=== PATIENT | female | born 1995 | race American Indian/Alaskan Native ===

== ENCOUNTER 2017-03-13 19:43 | Emergency (ER) | payer SELFPAY ==
[2017-03-13] MEDS ORDERED: NORCO 5/325 PO ONE (22:56)
[2017-03-13] MEDS ORDERED: NORCO 5/325 ONE (22:58)
[2017-03-14] MEDS ORDERED: TORADOL IV ONE (04:55)
[2017-03-14] MEDS ORDERED: MORPHINE IV ONE (04:55)
[2017-03-14] MEDS ORDERED: ZOFRAN IV ONE (04:55)
[2017-03-14 05:12] VITALS: BP 117/69
[2017-03-14] MEDS ORDERED: XYLOCAINE 2% INFILTRATI ONE (09:05)
--- NOTE | 2017-03-14 09:13 | Emergency Department Report ---
ED Female HPI - General Chief complaint: Urogenital-Female Stated complaint: CYST NEEDS TO DRAIN Time Seen by Provider: 03/14/17 08:52 Source: patient Mode of arrival: Ambulatory Limitations: No Limitations - History of Present Illness Initial comments: Patient presents here with complaints of swelling in her left labia region 4 days. Patient denies vaginal discharge, no fever, no nausea or vomiting. Swelling of her left labia makes it difficult for her to walk. -: Gradual, days(s) (4 , progressively getting worse) Location: labia (left) Severity scale (0 -10): 10 Quality: sharp, stabbing Consistency: constant Improves with: none Worsens with: movement Associated Symptoms: other (pain and swelling left labia). denies: vaginal discharge, vaginal bleeding, abdominal pain, nausea/vomiting, fever/chills, headaches, loss of appetite, dysuria, hematuria, rash, seizure, shortness of breath, syncope, weakness - Related Data Previous Rx's Medication Instructions Recorded Last Taken Type HYDROcodone/APAP 5-325 [[place] 1 each PO Q6HR PRN #20 tablet 03/14/17 Unknown Rx 5/325] Ibuprofen [Motrin 400 MG tab] 400 mg PO Q6HR PRN #30 tablet 03/14/17 Unknown Rx Sulfamethoxazole/Trimethoprim 1 each PO BID #14 tablet 03/14/17 Unknown Rx [Bactrim DS TAB] Allergies Allergy/AdvReac Type Severity Reaction Status Date / Time No Known Allergies Allergy Verified 03/13/17 23:01 ED Review of Systems ROS: Stated complaint: CYST NEEDS TO DRAIN Other details as noted in HPI Comment: All other systems reviewed and negative Genitourinary: other (pain and swelling of her left labia). denies: urgency, frequency, hematuria, abnormal menses ED Past Medical Hx - Past Medical History Previous Medical History?: No Additional medical history: denies - Surgical History Past Surgical History?: No Additional Surgical History: denies - Social History Smoking Status: Current Every Day Smoker Substance Use Type: Alcohol - Medications Home Medications: Home Medications Medication Instructions Recorded Confirmed Last Taken Type HYDROcodone/APAP 5-325 [[place] 1 each PO Q6HR PRN #20 tablet 03/14/17 Unknown Rx 5/325] Ibuprofen [Motrin 400 MG tab] 400 mg PO Q6HR PRN #30 tablet 03/14/17 Unknown Rx Sulfamethoxazole/Trimethoprim 1 each PO BID #14 tablet 03/14/17 Unknown Rx [Bactrim DS TAB] ED Physical Exam - General Limitations: No Limitations General appearance: alert, in distress (mild to moderate distress) - Head Head exam: Present: atraumatic, normocephalic, normal inspection - Eye Eye exam: Present: normal appearance, PERRL, EOMI. Absent: scleral icterus, conjunctival injection Pupils: Present: normal accommodation - ENT ENT exam: Present: normal exam, normal orophraynx, mucous membranes moist - Neck Neck exam: Present: normal inspection, full ROM. Absent: tenderness, lymphadenopathy - Respiratory Respiratory exam: Present: normal lung sounds bilaterally. Absent: respiratory distress, wheezes, rales, rhonchi, chest wall tenderness, accessory muscle use, decreased breath sounds - Cardiovascular Cardiovascular Exam: Present: regular rate, normal rhythm, normal heart sounds. Absent: bradycardia, systolic murmur - GI/Abdominal GI/Abdominal exam: Present: soft, normal bowel sounds. Absent: distended, tenderness, guarding, diminished bowel sounds, hyperactive bowel sounds - Rectal Rectal exam: Present: deferred - External exam: Present: swelling (left labia) Speculum exam: Absent: vaginal discharge, vaginal bleeding, laceration - Extremities Exam Extremities exam: Present: normal inspection, normal capillary refill. Absent: full ROM - Back Exam Back exam: Present: normal inspection, full ROM. Absent: CVA tenderness (L), muscle spasm - Neurological Exam Neurological exam: Present: alert, oriented X3, CN II-XII intact ED Course Vital Signs 03/13/17 03/13/17 03/13/17 20:31 20:49 22:56 Temperature 99.3 F 99.3 F Pulse Rate 100 H 99 H Respiratory 18 18 18 Rate Blood Pressure 110/77 110/77 Blood Pressure [Left] O2 Sat by Pulse 100 100 Oximetry 03/14/17 03/14/17 03/14/17 04:52 05:13 05:15 Temperature Pulse Rate 77 Respiratory 18 18 18 Rate Blood Pressure Blood Pressure 117/69 [Left] O2 Sat by Pulse 100 100 Oximetry - I & D Left Vagina Site: left labia, Bartholin's abscess Blade Size: 15 Progress: Patient's left labia was cleanes with chlorhexidine brush. 5 cc of Lidocaine infiltrated around her left bartholin's abscess. Incision made, drainage observed. No packing done Procedure was well tolerated Critical Care Time: No Critical care attestation.: If time is entered above; I have spent that time in minutes in the direct care of this critically ill patient, excluding procedure time. ED Disposition Clinical Impression: Bartholin's gland abscess Disposition: TO HOME OR SELFCARE Is pt being admited?: No Does the pt Need Aspirin: No Condition: Stable Instructions: Incision and Drainage (ED) Additional Instructions: Do sitz baths, twice daily. Follow up with your Personnel Analyst in 2-3 days. Return back to ED if your problem gets worse, for possible marsupialization Prescriptions: HYDROcodone/APAP 5-325 [[place] 5/325] 1 each PO Q6HR PRN #20 tablet PRN Reason: Pain Ibuprofen [Motrin 400 MG tab] 400 mg PO Q6HR PRN #30 tablet PRN Reason: Pain Sulfamethoxazole/Trimethoprim [Bactrim DS TAB] 1 each PO BID #14 tablet Referrals: PRIMARY CARE, [Primary Care Provider] - 3-5 Days Time of Disposition: 10:06
[2017-03-14] MEDS ORDERED: NORCO 5/325 PO ONE (09:51)
== END 2017-03-14 10:37 | disposition home or self-care (01) ==
LOC: ED 19:43
DX: N75.1 Abscess of Bartholin's gland (principal); F17.210 Nicotine dependence, cigarettes, uncomplicated
CPT/HCPCS: 56420; 96374; 96375; 99283; J1885; J2270; J2405

== ENCOUNTER 2018-02-21 08:46 | Emergency (ER) | payer SELFPAY ==
[2018-02-21 08:54] VITALS: BP 140/89
[2018-02-21 09:31] LABS: Basophils # (Auto) 0.1 K/mm3 (0.0-0.1); Basophils % (Auto) 1.1 % (0.0-1.8); Eosinophils # (Auto) 0.1 K/mm3 (0.0-0.4); Eosinophils % (Auto) 1.8 % (0.0-4.3); Hematocrit 38.4 % (30.3-42.9); Hemoglobin 13.2 gm/dl (10.1-14.3); Lymphocytes # (Auto) 2.2 K/mm3 (1.2-5.4); Lymphocytes % (Auto) 31.1 % (13.4-35.0); Mean Corpuscular HGB Conc 34 % (30-34); Mean Corpuscular Hemoglobin 32 pg (28-32); Mean Corpuscular Volume 93 fl (79-97); Platelet Count 242 K/mm3 (140-440); Red Blood Count 4.12 M/mm3 (3.65-5.03); Red Cell Distribution Width 13.8 % (13.2-15.2)
[2018-02-21 09:47] LABS: Alanine Aminotransferase 14 units/L (7-56); BUN/Creatinine Ratio 6; Blood Urea Nitrogen 5 mg/dL (7-17); Calcium 8.7 mg/dL (8.4-10.2); Hemolysis Index 5; Lipase 18 units/L (13-60)
[2018-02-21 10:17] LABS: Bilirubin,Urine NEG (Negative); Blood,Urine NEG (Negative); Color,Urine Yellow (Yellow); Mucus,Urine 1+ /HPF; Protein,Urine <15 mg/dL mg/dL (Negative); Urobilinogen,Urine < 2.0 mg/dL (<2.0)
[2018-02-21] MEDS: NACL 0.9% 1000 ML 1,000 ML IV ONE ×2 (12:10→12:45)
[2018-02-21] MEDS ORDERED: ZOFRAN IV ONE (12:28)
[2018-02-21] MEDS ORDERED: MORPHINE IV ONE (12:28)
--- NOTE | 2018-02-21 12:33 | Emergency Department Report ---
Blank Doc - Documentation Documentation: 23-year-old female presents to ED with complaints of right upper quadrant pain since yesterday. Patient reports onset of nausea vomiting diarrhea 4 days ago. Was seen in ED 2 days ago for those symptoms. Patient states vomiting and diarrhea have improved, however, reports onset of left right upper quadrant pain yesterday. Patient states pain is pleuritic, unable to take a deep breath. Patient denies leg pain or swelling. She denies fever or chills. On exam patient has normal vitals. Patient is splinting with respirations. Lungs are clear. No edema or calf tenderness and lower extremities. Patient has slight tenderness to right upper quadrant. Will obtain chest x-ray, d-dimer to rule out PE, and right upper quadrant ultrasound to assess gallbladder.
--- NOTE | 2018-02-21 13:13 | XRay Report ---
FINAL REPORT EXAM: XR CHEST ROUTINE 2V HISTORY: right lower chest pain TECHNIQUE: 2 view examination of the chest PRIORS: None FINDINGS: There is no visible pulmonary consolidation, pleural effusion, or pneumothorax. Cardiac silhouette size is normal without vascular congestion. No visible acute displaced fracture in the regional skeleton. No evidence of right pleural thickening. IMPRESSION: No evidence of acute cardiopulmonary disease
--- NOTE | 2018-02-21 13:25 | Ultrasound Report ---
FINAL REPORT EXAM: US ABDOMEN LIMITED HISTORY: RUQ pain TECHNIQUE: Ultrasound examination of the abdomen PRIORS: None. FINDINGS: The visible portion of the following structures reveal: Ascites: None Liver: No focal lesion.No enlargement. Gallbladder: No pericholecystic fluid.No evidence of wall thickening.No calculus. Common bile duct: Normal caliber. Pancreas: No focal abnormality in the visible portion. Right kidney: No hydronephrosis.No solid mass.No definite calculus. Abdominal aorta: Normal caliber. IVC: Normal caliber. IMPRESSION: No evidence of acute pathology
[2018-02-21 13:44] LABS: INR 1.07 (0.87-1.13); Partial Thromboplastin Time 28.6 Sec. (24.2-36.6)
--- NOTE | 2018-02-21 14:14 | Emergency Department Report ---
ED General Adult HPI - General Chief complaint: Abdominal Pain Stated complaint: ABD PAIN/SOB Time Seen by Provider: 02/21/18 11:49 Source: patient Mode of arrival: Ambulatory Limitations: No Limitations - History of Present Illness Initial comments: 23-year-old female presents to ED with complaints of right upper quadrant pain since yesterday. Patient reports onset of nausea vomiting diarrhea 4 days ago. Was seen in ED 2 days ago for those symptoms. Patient states vomiting and diarrhea have improved, however, reports onset of left right upper quadrant pain yesterday. Patient states pain is pleuritic, unable to take a deep breath. Patient denies leg pain or swelling. She denies fever or chills. Denies vomiting blood or blood in stool. She denies any fever or chills. Denies any urinary burning frequency or urgency. Denies any back pain. Patient is on control that she takes orally. She says she is having some shortness of breath. Last menstrual period was 01/25/2018 and denies any vaginal discharge or bleeding. MD Complaint: abdominal pain right upper quadrant and diarrhea Onset/Timin -: days(s) Location: abdomen Radiation: non-radiation Severity scale (0 -10): 3 Quality: aching, sharp Consistency: intermittent Improves with: none Worsens with: none Associated Symptoms: other (diarrhea last time was this morning. Reports some shortness of breath.). denies: confusion, chest pain, cough, diaphoresis, fever /chills, headaches, loss of appetite, malaise, nausea/vomiting, rash, seizure, shortness of breath, syncope, weakness Treatments Prior to Arrival: other (Zofran) - Related Data Previous Rx's Medication Instructions Recorded Last Taken Type HYDROcodone/APAP 5-325 [[place] 1 each PO Q6HR PRN #20 tablet 03/14/17 Unknown Rx 5/325] Ibuprofen [Motrin 400 MG tab] 400 mg PO Q6HR PRN #30 tablet 03/14/17 Unknown Rx Sulfamethoxazole/Trimethoprim 1 each PO BID #14 tablet 03/14/17 Unknown Rx [Bactrim DS TAB] Ondansetron [Zofran Odt] 4 mg PO Q8HR #9 tab.rapdis 02/19/18 Unknown Rx Dicyclomine [Bentyl] 20 mg PO Q8H 3 Days #9 bottle 02/21/18 Unknown Rx cephALEXin [Keflex] 500 mg PO Q8HR 7 Days #21 cap 02/21/18 Unknown Rx traMADol [Ultram 50 MG tab] 50 mg PO Q6HR PRN #12 tablet 02/21/18 Unknown Rx Allergies Allergy/AdvReac Type Severity Reaction Status Date / Time ibuprofen Allergy Hives Verified 02/19/18 04:30 ED Review of Systems ROS: Stated complaint: ABD PAIN/SOB Other details as noted in HPI Constitutional: denies: chills, fever Eyes: denies: eye pain, eye discharge, vision change ENT: denies: ear pain, throat pain, congestion Respiratory: shortness of breath (with pain to abdomen). denies: cough, SOB with exertion, SOB at rest, stridor, wheezing Cardiovascular: denies: chest pain, palpitations, edema, syncope Gastrointestinal: abdominal pain, diarrhea. denies: nausea, vomiting, constipation, hematemesis, melena, hematochezia Genitourinary: denies: urgency, dysuria, discharge Musculoskeletal: denies: back pain, joint swelling, arthralgia, myalgia Skin: denies: rash, lesions Neurological: denies: headache, weakness ED Past Medical Hx - Past Medical History Previous Medical History?: No Additional medical history: denies - Surgical History Past Surgical History?: No Additional Surgical History: denies - Family History Family history: hypertension - Social History Smoking Status: Current Every Day Smoker Substance Use Type: None - Medications Home Medications: Home Medications Medication Instructions Recorded Confirmed Last Taken Type HYDROcodone/APAP 5-325 [[place] 1 each PO Q6HR PRN #20 tablet 03/14/17 Unknown Rx 5/325] Ibuprofen [Motrin 400 MG tab] 400 mg PO Q6HR PRN #30 tablet 03/14/17 Unknown Rx Sulfamethoxazole/Trimethoprim 1 each PO BID #14 tablet 03/14/17 Unknown Rx [Bactrim DS TAB] Ondansetron [Zofran Odt] 4 mg PO Q8HR #9 tab.rapdis 02/19/18 Unknown Rx Dicyclomine [Bentyl] 20 mg PO Q8H 3 Days #9 bottle 02/21/18 Unknown Rx cephALEXin [Keflex] 500 mg PO Q8HR 7 Days #21 cap 02/21/18 Unknown Rx traMADol [Ultram 50 MG tab] 50 mg PO Q6HR PRN #12 tablet 02/21/18 Unknown Rx ED Physical Exam - General Limitations: No Limitations General appearance: alert, in no apparent distress - Head Head exam: Present: atraumatic, normocephalic, normal inspection - Eye Eye exam: Present: normal appearance, PERRL, EOMI Pupils: Present: normal accommodation - ENT ENT exam: Present: normal exam, normal orophraynx, mucous membranes moist, TM's normal bilaterally, normal external ear exam - Neck Neck exam: Present: normal inspection, full ROM. Absent: tenderness, lymphadenopathy - Respiratory Respiratory exam: Present: normal lung sounds bilaterally. Absent: respiratory distress, wheezes, rales, rhonchi, stridor, chest wall tenderness, accessory muscle use, decreased breath sounds, prolonged expiratory - Cardiovascular Cardiovascular Exam: Present: regular rate, normal rhythm, normal heart sounds. Absent: systolic murmur, diastolic murmur - GI/Abdominal GI/Abdominal exam: Present: soft, tenderness (minimal right upper quadrant), normal bowel sounds. Absent: distended, guarding, rebound, rigid, organomegaly , mass, bruit, pulsatile mass - Extremities Exam Extremities exam: Present: normal inspection, full ROM, normal capillary refill , other (No cce. + 2 pulses in all extremities, no neurovascular compromise). Absent: tenderness, pedal edema, joint swelling, calf tenderness - Back Exam Back exam: Present: normal inspection, full ROM, other (Ambulates without any difficulties). Absent: tenderness, CVA tenderness (R), CVA tenderness (L), muscle spasm, paraspinal tenderness, vertebral tenderness, rash noted - Neurological Exam Neurological exam: Present: alert, oriented X3, normal gait - Psychiatric Psychiatric exam: Present: normal affect, normal mood - Skin Skin exam: Present: warm, dry, intact, normal color. Absent: rash ED Course Vital Signs 02/21/18 02/21/18 02/21/18 08:51 12:45 12:58 Temperature 98.7 F Pulse Rate 96 H Respiratory 24 20 18 Rate Blood Pressure 140/89 O2 Sat by Pulse 98 Oximetry 02/21/18 02/21/18 16:01 16:48 Temperature Pulse Rate Respiratory 18 18 Rate Blood Pressure O2 Sat by Pulse Oximetry - Reevaluation(s) Reevaluation #1: 02/21/18 13:01 Patient received 1 L normal saline, Zofran 4 mg IV and morphine 4 mg IV for nausea and abdominal pain and she says she feels better. Reevaluation #2: 02/21/18 14:30 D-dimer elevated on the lower side and patient taking control pills therefore she was ordered CTA chest. She said her pain and nausea is better and better. Potassium is slightly low so she was given potassium 40 mEq by mouth 1 dose. Abdominal exam is nontender to palpate in all quadrants with normal bowel sounds. Reevaluation #3: 02/21/18 17:04 CTA chest no PE or any acute cardiopulmonary processes. She received 1 Percocet 325/5 mg for recurrent pain or relief. I discussed the patient all her results and she voiced understanding. Patient to be discharged home she is able to tolerate by mouth fluids. ED Medical Decision Making - Lab Data Result diagrams: 02/21/18 09:12 02/21/18 09:12 Lab Results 02/21/18 02/21/18 02/21/18 Range/Units 09:12 09:12 09:12 WBC 6.9 (4.5-11.0) K/mm3 RBC 4.12 (3.65-5.03) M/mm3 Hgb 13.2 (10.1-14.3) gm/dl Hct 38.4 (30.3-42.9) % MCV 93 (79-97) fl MCH 32 (28-32) pg MCHC 34 (30-34) % RDW 13.8 (13.2-15.2) % Plt Count 242 (140-440) K/mm3 Lymph % (Auto) 31.1 (13.4-35.0) % Routt % (Auto) 14.0 H (0.0-7.3) % Eos % (Auto) 1.8 (0.0-4.3) % Baso % (Auto) 1.1 (0.0-1.8) % Lymph # 2.2 (1.2-5.4) K/mm3 Routt # 1.0 H (0.0-0.8) K/mm3 Eos # 0.1 (0.0-0.4) K/mm3 Baso # 0.1 (0.0-0.1) K/mm3 Seg Neutrophils % 52.0 (40.0-70.0) % Seg Neutrophils # 3.6 (1.8-7.7) K/mm3 PT (12.2-14.9) Sec. INR (0.87-1.13) APTT (24.2-36.6) Sec. D-Dimer (0-234) ng/mlDDU Sodium 137 (137-145) mmol/L Potassium 3.4 L (3.6-5.0) mmol/L Chloride 101.2 (98-107) mmol/L Carbon Dioxide 21 L (22-30) mmol/L Anion Gap 18 mmol/L BUN 5 L (7-17) mg/dL Creatinine 0.8 (0.7-1.2) mg/dL Estimated GFR > 60 ml/min BUN/Creatinine Ratio 6 % Glucose 88 (65-100) mg/dL Calcium 8.7 (8.4-10.2) mg/dL Total Bilirubin 0.30 (0.1-1.2) mg/dL AST 20 (5-40) units/L ALT 14 (7-56) units/L Alkaline Phosphatase 59 (35-129) units/L Total Protein 7.0 (6.3-8.2) g/dL Albumin 4.0 (3.9-5) g/dL Albumin/Globulin Ratio 1.3 % Lipase 18 (13-60) units/L HCG, Qual Negative (Negative) Urine Color (Yellow) Urine Turbidity (Clear) Urine pH (5.0-7.0) Ur Specific [place] (1.003-1.030) Urine Protein (Negative) mg/dL Urine Glucose (UA) (Negative) mg/dL Urine Ketones (Negative) mg/dL Urine Blood (Negative) Urine Nitrite (Negative) Urine Bilirubin (Negative) Urine Urobilinogen (<2.0) mg/dL Ur Leukocyte Esterase (Negative) Urine WBC (Auto) (0.0-6.0) /HPF Urine RBC (Auto) (0.0-6.0) /HPF U Epithel Cells (Auto) (0-13.0) /HPF Urine Mucus /HPF Monoscreen (Negative) 02/21/18 02/21/18 02/21/18 Range/Units 09:44 13:19 14:30 WBC (4.5-11.0) K/mm3 RBC (3.65-5.03) M/mm3 Hgb (10.1-14.3) gm/dl Hct (30.3-42.9) % MCV (79-97) fl MCH (28-32) pg MCHC (30-34) % RDW (13.2-15.2) % Plt Count (140-440) K/mm3 Lymph % (Auto) (13.4-35.0) % Routt % (Auto) (0.0-7.3) % Eos % (Auto) (0.0-4.3) % Baso % (Auto) (0.0-1.8) % Lymph # (1.2-5.4) K/mm3 Routt # (0.0-0.8) K/mm3 Eos # (0.0-0.4) K/mm3 Baso # (0.0-0.1) K/mm3 Seg Neutrophils % (40.0-70.0) % Seg Neutrophils # (1.8-7.7) K/mm3 PT 14.5 (12.2-14.9) Sec. INR 1.07 (0.87-1.13) APTT 28.6 (24.2-36.6) Sec. D-Dimer 309.37 H (0-234) ng/mlDDU Sodium (137-145) mmol/L Potassium (3.6-5.0) mmol/L Chloride (98-107) mmol/L Carbon Dioxide (22-30) mmol/L Anion Gap mmol/L BUN (7-17) mg/dL Creatinine (0.7-1.2) mg/dL Estimated GFR ml/min BUN/Creatinine Ratio % Glucose (65-100) mg/dL Calcium (8.4-10.2) mg/dL Total Bilirubin (0.1-1.2) mg/dL AST (5-40) units/L ALT (7-56) units/L Alkaline Phosphatase (35-129) units/L Total Protein (6.3-8.2) g/dL Albumin (3.9-5) g/dL Albumin/Globulin Ratio % Lipase (13-60) units/L HCG, Qual (Negative) Urine Color Yellow (Yellow) Urine Turbidity Slightly-cloudy (Clear) Urine pH 5.0 (5.0-7.0) Ur Specific [place] 1.021 (1.003-1.030) Urine Protein <15 mg/dl (Negative) mg/dL Urine Glucose (UA) Neg (Negative) mg/dL Urine Ketones 20 (Negative) mg/dL Urine Blood Neg (Negative) Urine Nitrite Neg (Negative) Urine Bilirubin Neg (Negative) Urine Urobilinogen < 2.0 (<2.0) mg/dL Ur Leukocyte Esterase Mod (Negative) Urine WBC (Auto) 7.0 H (0.0-6.0) /HPF Urine RBC (Auto) 4.0 (0.0-6.0) /HPF U Epithel Cells (Auto) 14.0 H (0-13.0) /HPF Urine Mucus 1+ /HPF Monoscreen Negative (Negative) Urine culture sent - Radiology Data Radiology results: report reviewed Patient: GET CONDE MR#: [id number] : 1995 Acct:[id number] Age/Sex: 23 / F ADM Date: 02/21/18 Loc: ED Attending Dr: Ordering Physician: SCOTT VELEZ MD Date of Service: 02/21/18 Procedure(s): US abdomen limited Accession Number(s): [id number] cc: SCOTT VELEZ MD FINAL REPORT EXAM: US ABDOMEN LIMITED HISTORY: RUQ pain TECHNIQUE: Ultrasound examination of the abdomen PRIORS: None. FINDINGS: The visible portion of the following structures reveal: Ascites: None Liver: No focal lesion.No enlargement. Gallbladder: No pericholecystic fluid.No evidence of wall thickening.No calculus. Common bile duct: Normal caliber. Pancreas: No focal abnormality in the visible portion. Right kidney: No hydronephrosis.No solid mass.No definite calculus. Abdominal aorta: Normal caliber. IVC: Normal caliber. IMPRESSION: No evidence of acute pathology Transcribed By: BAL Dictated By: KENNY LOPEZ MD Electronically Authenticated By: KENNY LOPEZ MD Signed Date/Time: 02/21/18 2684 Patient: GET CONDE MR#: [id number] : 1995 Acct:[id number] Age/Sex: 23 / F ADM Date: 02/21/18 Loc: ED Attending Dr: Ordering Physician: SCOTT VELEZ MD Date of Service: 02/21/18 Procedure(s): XR chest routine 2V Accession Number(s): [id number] cc: SCOTT VELEZ MD Fluoro Time In Minutes: FINAL REPORT EXAM: XR CHEST ROUTINE 2V HISTORY: right lower chest pain TECHNIQUE: 2 view examination of the chest PRIORS: None FINDINGS: There is no visible pulmonary consolidation, pleural effusion, or pneumothorax. Cardiac silhouette size is normal without vascular congestion. No visible acute displaced fracture in the regional skeleton. No evidence of right pleural thickening. IMPRESSION: No evidence of acute cardiopulmonary disease Transcribed By: BAL Dictated By: KENNY LOPEZ MD Electronically Authenticated By: KENNY LOPEZ MD Signed Date/Time: 02/21/181311 DD/ 1312 TD/TT: 02/21/18 1312 DD/ 1324 TD/TT: 02/21/18 [address] [address] Cat Scan Report Signed Patient: GET CONDE MR#: [id number] : 1995 Acct:[id number] Age/Sex: 23 / F ADM Date: 02/21/18 Loc: ED Attending Dr: Ordering Physician: GOPAL RODRIGUEZ Date of Service: 02/21/18 Procedure(s): CT angio chest Accession Number(s): [id number] cc: GOPAL RODRIGUEZ FINAL REPORT EXAM: CT ANGIO CHEST HISTORY: shortness of breath with elevated d-dimer TECHNIQUE: CT examination of the chest with IV contrast CT angiographic 2D and thick slab 3D image post-processing PRIORS: Two-view chest 02/21/2018 FINDINGS: Normal cardiac size without pericardial effusion. Intact normal caliber thoracic aorta. Normal-appearing esophagus. No hilar mass or mediastinal adenopathy. The visualized pulmonary arteries are diffusely patent bilaterally. There is no filling defect to suggest PE. No evidence of acute fracture. No pneumothorax, pleural effusion, or focal pulmonary consolidation. No evidence of lung nodule or mass. IMPRESSION: No CT evidence of PE or acute cardiopulmonary disease Transcribed By: BAL Dictated By: KENNY LOPEZ MD Electronically Authenticated By: KENNY LOPEZ MD Signed Date/Time: 02/21/181545 DD/ 45 TD/TT: 02/21/181545 - Medical Decision Making This is a 23-year-old patient here reported that she is having right upper quadrant abdominal pain and she was here on Tuesday which was 2 days ago for nausea vomiting and diarrhea and a pacer on nausea medication. Was screened by Dr. Velez in order . Physical exam is normal except she has minimal tenderness to right upper quadrant. Patient also complained of shortness of breath with abdominal pain and appeared slightly anxious and with her being on control pill and d-dimer being positive she had CTA chest Diagnostics: Ultrasound right upper quadrant reveals normal exam. Chest x-ray reveals no acute cardiopulmonary processes. CT chest negative for PE or any cardiopulmonary processes. Exams were dictated by radiologist and reports reviewed by myself and Dr. Velez. Please see detailed report on the radiology section Labs: CBC stable, PT/PTT stable, d-dimer elevated at lower level, urinalysis with white counts and leukocyte Estrace was contaminated but since patient is complaining of abdominal pain will treat for UTI. Urine ketones at 20 Lipase stable test is negative. Routt test is negative. Please see detailed report from the laboratory sections Assessment/plan Abdominal pain, right upper quadrant-resolved after 4 mg of IV morphine, 1 L of normal saline and 4 mg of Zofran to prevent nausea. She was also given Percocet 5/325 mg one tablet by mouth. Prescription for Bentyl and tramadol Acute cystitis-patient sent home on Keflex Mild dehydration-urine ketones at 20. she was encouraged to drink plenty of fluids I instructed her that she can continue her Zofran if she becomes nauseated. No vomiting. Patient instructed to follow up with financial institution manager and also primary care physician. She voiced understanding. I instructed her on her x-ray results, ultrasound results and CT scan results and she voiced understanding. I also gave her information and laboratory results to include urinalysis and diagnoses explained to her. She voiced understanding. Patient discharged home in stable condition, vital signs stable she is afebrile and her pain is better and she knows she is to follow up with primary care and asked him to a urologist. She was given prescription for Keflex, Bentyl and Ultram - Differential Diagnosis gallbladder disease, liver disease, pancreatitis, UTI, PE Critical care attestation.: If time is entered above; I have spent that time in minutes in the direct care of this critically ill patient, excluding procedure time. ED Disposition Clinical Impression: Dehydration, mild Abdominal pain Qualifiers: Abdominal location: right upper quadrant Qualified Code(s): R10.11 - Right upper quadrant pain UTI (urinary tract infection) Qualifiers: Urinary tract infection type: acute cystitis Hematuria presence: without hematuria Qualified Code(s): N30.00 - Acute cystitis without hematuria Disposition: TO HOME OR SELFCARE Is pt being admited?: No Does the pt Need Aspirin: No Condition: Stable Instructions: Abdominal Pain (ED), Urinary Tract Infection in Women (ED), Dehydration (ED) Additional Instructions: Continue to take his Zofran that was prescribed 2 days ago for any nausea or vomiting Take Bentyl for abdominal pain Take ultram prescribed for pain but please do not drive or operate heavy machinery while taking this medication as it causes drowsiness Take Keflex for bladder infection Be sure to increase your fluid intake to at least 3 L of water daily because your urine reflects that you are mildly dehydrated Prescriptions: cephALEXin [Keflex] 500 mg PO Q8HR 7 Days #21 cap Dicyclomine [Bentyl] 20 mg PO Q8H 3 Days #9 bottle traMADol [Ultram 50 MG tab] 50 mg PO Q6HR PRN #12 tablet PRN Reason: Pain Referrals: PRIMARY CARE, [Primary Care Provider] - 2-3 Days [facility] [Outside] - 2-3 Days [facility] [Provider Group] - 02/23/18 Forms: Work/School Release Form(ED)
[2018-02-21] MEDS ORDERED: K-DUR PO ONE (14:16)
[2018-02-21] MEDS ORDERED: NACL 0.9% 50 ML ONE (14:53)
[2018-02-21] MEDS ORDERED: NACL 0.9% 300 ML ONE (14:55)
--- NOTE | 2018-02-21 15:48 | Cat Scan Report ---
FINAL REPORT EXAM: CT ANGIO CHEST HISTORY: shortness of breath with elevated d-dimer TECHNIQUE: CT examination of the chest with IV contrast CT angiographic 2D and thick slab 3D image post-processing PRIORS: Two-view chest 02/21/2018 FINDINGS: Normal cardiac size without pericardial effusion. Intact normal caliber thoracic aorta. Normal-appearing esophagus. No hilar mass or mediastinal adenopathy. The visualized pulmonary arteries are diffusely patent bilaterally. There is no filling defect to suggest PE. No evidence of acute fracture. No pneumothorax, pleural effusion, or focal pulmonary consolidation. No evidence of lung nodule or mass. IMPRESSION: No CT evidence of PE or acute cardiopulmonary disease
[2018-02-21] MEDS ORDERED: PERCOCET 5/325 PO ONE (15:59)
[2018-02-21] MEDS ORDERED: PERCOCET 5/325 ONE (16:01)
== END 2018-02-21 17:24 | disposition home or self-care (01) ==
LOC: ED 08:46
DX: N30.00 Acute cystitis without hematuria (principal); E86.0 Dehydration; F17.200 Nicotine dependence, unspecified, uncomplicated; Z88.6 Allergy status to analgesic agent
CPT/HCPCS: 36415; 71046; 71275; 76705; 80053; 81001; 83690; 84703; 85025; 85379; 85610; 85730; 86308; 87086; 96361; 96374; 96375; 99284; J2270; J2405; J7030; Q9967

== ENCOUNTER 2019-05-03 18:00 | Emergency (ER) | payer SELFPAY ==
[2019-05-03 20:20] VITALS: BP 128/84
--- NOTE | 2019-05-03 20:22 | Event Note ---
ED Screening Note Date of service: 05/03/19 Time: 20:19 ED Screening Note: 24 y o female presents with cc of left side vaginal swelling and cyst This initial assessment/diagnostic orders/clinical plan/treatment(s) is/are subject to change based on patients health status, clinical progression and re- assessment by fellow clinical providers in the ED. Further treatment and workup at subsequent clinical providers discretion. Patient/guardian urged not to elope from the ED as their condition may be serious if not clinically assessed and managed. Initial orders include: acc eval I & D
[2019-05-03] MEDS ORDERED: LORazepam 1 MG TAB PO ONE (21:58)
--- NOTE | 2019-05-03 22:01 | Emergency Department Report ---
Abscess Boil HPI - HPI Chief Complaint: Skin/Abscess/Foreign Body Stated Complaint: BARTHOLIN CYST Time Seen by Provider: 05/03/19 21:36 Duration: 3 Days Location: Other ([facility]) Severity: Mild History: No Fever, No Pain, No Purulent Drainage, No Numbness, No Foreign Body, No Previous History, No Insect Bite HPI: This pleasant 24-year-old female presents to emergency department with chief complaint a painful bump to the left labia majora. Patient is a history of Bartholin's cyst and states this feels similar. Patient rates the severity of her pain is 10. She denies any drainage. She has a known past medical history, current medications and allergies medications. Home Medications: Previous Rx's Medication Instructions Recorded Last Taken Type HYDROcodone/APAP 5-325 [[place] 1 each PO Q6HR PRN #20 tablet 03/14/17 Unknown Rx 5/325] Ibuprofen [Motrin 400 MG tab] 400 mg PO Q6HR PRN #30 tablet 03/14/17 Unknown Rx Sulfamethoxazole/Trimethoprim 1 each PO BID #14 tablet 03/14/17 Unknown Rx [Bactrim DS TAB] Ondansetron [Zofran Odt] 4 mg PO Q8HR #9 tab.rapdis 02/19/18 Unknown Rx Dicyclomine [Bentyl] 20 mg PO Q8H 3 Days #9 bottle 02/21/18 Unknown Rx cephALEXin [Keflex] 500 mg PO Q8HR 7 Days #21 cap 02/21/18 Unknown Rx traMADoL [Ultram 50 MG tab] 50 mg PO Q6HR PRN #12 tablet 02/21/18 Unknown Rx Sulfamethoxazole/Trimethoprim 1 each PO BID #14 tablet 05/03/19 Unknown Rx [Bactrim DS TAB] traMADoL [Ultram 50 MG tab] 50 mg PO Q6HR PRN #12 tablet 05/03/19 Unknown Rx Allergies/Adverse Reactions: Allergies Allergy/AdvReac Type Severity Reaction Status Date / Time ibuprofen Allergy Hives Verified 02/19/18 04:30 ED Review of Systems ROS: Stated complaint: BARTHOLIN CYST Other details as noted in HPI Comment: All other systems reviewed and negative Constitutional: denies: chills, fever Eyes: denies: eye pain, eye discharge, vision change ENT: denies: ear pain, throat pain Respiratory: denies: cough, shortness of breath, wheezing Cardiovascular: denies: chest pain, palpitations Endocrine: no symptoms reported Gastrointestinal: denies: abdominal pain, nausea, diarrhea Genitourinary: as per HPI, other (painful bump ). denies: urgency, dysuria, discharge Musculoskeletal: denies: back pain, joint swelling, arthralgia Skin: denies: rash, lesions Neurological: denies: headache, weakness, paresthesias Psychiatric: denies: anxiety, depression Hematological/Lymphatic: denies: easy bleeding, easy bruising ED Past Medical Hx - Past Medical History Previous Medical History?: Yes Additional medical history: herpes simplex virus - Surgical History Additional Surgical History: denies - Social History Smoking Status: Never Smoker Substance Use Type: Marijuana - Medications Home Medications: Home Medications Medication Instructions Recorded Confirmed Last Taken Type HYDROcodone/APAP 5-325 [[place] 1 each PO Q6HR PRN #20 tablet 03/14/17 Unknown Rx 5/325] Ibuprofen [Motrin 400 MG tab] 400 mg PO Q6HR PRN #30 tablet 03/14/17 Unknown Rx Sulfamethoxazole/Trimethoprim 1 each PO BID #14 tablet 03/14/17 Unknown Rx [Bactrim DS TAB] Ondansetron [Zofran Odt] 4 mg PO Q8HR #9 tab.rapdis 02/19/18 Unknown Rx Dicyclomine [Bentyl] 20 mg PO Q8H 3 Days #9 bottle 02/21/18 Unknown Rx cephALEXin [Keflex] 500 mg PO Q8HR 7 Days #21 cap 02/21/18 Unknown Rx traMADoL [Ultram 50 MG tab] 50 mg PO Q6HR PRN #12 tablet 02/21/18 Unknown Rx Sulfamethoxazole/Trimethoprim 1 each PO BID #14 tablet 05/03/19 Unknown Rx [Bactrim DS TAB] traMADoL [Ultram 50 MG tab] 50 mg PO Q6HR PRN #12 tablet 05/03/19 Unknown Rx ED Abscess Boil Physical Exam - Exam General: Vital signs noted. No distress. Alert and acting appropriately. Size: 2 cm Exam: Yes Tenderness, Yes Fluctuance, Yes Normal Neurologic Exam, Yes Normal Circulation, No Surrounding Cellulites/Erythema, No Lymphangitis, No Crepitation, No Heart Murmur Exam: There is a 2 cm fluctuant Bartholin's cyst of the left labia majora posterior with no crepitus or drainage. I & D Note - I & D Note I & D Note: The left labia majora was cleaned with Betadine, 1% lidocaine without epinephrine was injected with 27-gauge needle approximately 1 L was used to anesthetize the area. 11 blade was then used to be a stab incision to make a small half centimeter incision to the area of most fluctuance. Copious amount of clear fluid was then drained. The patient refused word catheter but would allow me to use iodoform packing. I did place approximately 1 cm of packing in the wound was 1 cm tail outside of the wound. Patient tolerated the procedure with difficulty due to anxiety and was given Ativan prior to procedure. No complications otherwise. ED Course Vital Signs 05/03/19 05/03/19 19:32 20:20 Temperature 99.1 F Pulse Rate 88 Respiratory 14 Rate Blood Pressure 128/84 O2 Sat by Pulse 100 Oximetry Critical care attestation.: If time is entered above; I have spent that time in minutes in the direct care of this critically ill patient, excluding procedure time. ED Medical Decision Making - Medical Decision Making Bartholin's cyst was drained without significant complication. Patient tolerated this well. Recommended sitz baths, will send home with tramadol and Bactrim and recommended outpatient follow-up with [facility]. She was understanding of the diagnosis, treatment plan and follow-up instructions and return precautions. Patient refused word catheter but did allow me to use iodoform gauze. I did educate her that this is not ideal and limits possibility feeling she understood and still wanted the catheter. Patient was educated return the emergency Department to 3 days for packing removal and wound reevaluation. - Differential Diagnosis Bartholin's cyst, abscess, abrasion ED Disposition Clinical Impression: Bartholin's cyst Disposition: DC-01 TO HOME OR SELFCARE Is pt being admited?: No Does the pt Need Aspirin: No Condition: Stable Instructions: Bartholin Cyst (ED) Prescriptions: Sulfamethoxazole/Trimethoprim [Bactrim DS TAB] 1 each PO BID #14 tablet traMADoL [Ultram 50 MG tab] 50 mg PO Q6HR PRN #12 tablet PRN Reason: Pain Referrals: PRIMARY CARE, [Primary Care Provider] - 3-5 Days AMINA DUFFY MD [Staff Physician] - 3-5 Days Forms: Work/School Release Form(ED) Time of Disposition: 22:27
== END 2019-05-03 22:40 | disposition home or self-care (01) ==
LOC: ED 18:00
DX: N75.0 Cyst of Bartholin's gland (principal); F12.10 Cannabis abuse, uncomplicated; Z79.1 Long term (current) use of non-steroidal anti-inflammatories (NSAID); Z79.899 Other long term (current) drug therapy; Z88.5 Allergy status to narcotic agent

== ENCOUNTER 2019-05-07 15:06 | Emergency (ER) | payer SELFPAY ==
--- NOTE | 2019-05-07 16:03 | Event Note ---
ED Screening Note ED Screening Note: states that she has a bartholins cyst states she has packing in place needs packing removed This initial assessment/diagnostic orders/clinical plan/treatment(s) is/are subject to change based on patients health status, clinical progression and re- assessment by fellow clinical providers in the ED. Further treatment and workup at subsequent clinical providers discretion. Patient/guardian urged not to elope from the ED as their condition may be serious if not clinically assessed and managed.
[2019-05-07 16:04] VITALS: BP 127/66
--- NOTE | 2019-05-07 17:22 | Emergency Department Report ---
ED Recheck HPI - General Chief Complaint: Medical Clearance Stated Complaint: CYST PAIN EXTREME Time Seen by Provider: 05/07/19 16:02 Source: patient Mode of arrival: Ambulatory Limitations: No Limitations - History of Present Illness Initial Comments: This is a 24-year-old female nontoxic, well nourished in appearance, no acute signs of distress presents to the ED for packing removal. Patient had a incision and drainage to left Bartolone abscess 3 days ago. Patient stated symptoms of swelling has improved. Patient denies any fever, chills, nausea, vomiting, chest pain, shortness of breath, headache, stiff neck, numbness or tingling. Patient denies any pus or drainage. Patient stated allergies to ibuprofen with no significant past medical history. Patient stated she is currently taking antibiotics. MD Complaint: wound re-check -: days(s) Initial Visit For: abscess Returns Today for: wound recheck Symptoms Since Prior Visit: no new symptoms, improved Context: planned re-check Associated Symptoms: none. denies: fever, chills, chest pain, shortness of breath, rash, malaise, [place], abdominal pain - Related Data Previous Rx's Medication Instructions Recorded Last Taken Type HYDROcodone/APAP 5-325 [[place] 1 each PO Q6HR PRN #20 tablet 03/14/17 Unknown Rx 5/325] Ibuprofen [Motrin 400 MG tab] 400 mg PO Q6HR PRN #30 tablet 03/14/17 Unknown Rx Sulfamethoxazole/Trimethoprim 1 each PO BID #14 tablet 03/14/17 Unknown Rx [Bactrim DS TAB] Ondansetron [Zofran Odt] 4 mg PO Q8HR #9 tab.rapdis 02/19/18 Unknown Rx Dicyclomine [Bentyl] 20 mg PO Q8H 3 Days #9 bottle 02/21/18 Unknown Rx cephALEXin [Keflex] 500 mg PO Q8HR 7 Days #21 cap 02/21/18 Unknown Rx traMADoL [Ultram 50 MG tab] 50 mg PO Q6HR PRN #12 tablet 02/21/18 Unknown Rx Sulfamethoxazole/Trimethoprim 1 each PO BID #14 tablet 05/03/19 Unknown Rx [Bactrim DS TAB] traMADoL [Ultram 50 MG tab] 50 mg PO Q6HR PRN #12 tablet 05/03/19 Unknown Rx Allergies Allergy/AdvReac Type Severity Reaction Status Date / Time ibuprofen Allergy Hives Verified 05/07/19 15:07 ED Review of Systems ROS: Stated complaint: CYST PAIN EXTREME Other details as noted in HPI Constitutional: denies: chills, fever Eyes: denies: eye pain, eye discharge, vision change ENT: denies: ear pain, throat pain Respiratory: denies: cough, shortness of breath, wheezing Cardiovascular: denies: chest pain, palpitations Endocrine: no symptoms reported Gastrointestinal: denies: abdominal pain, nausea, diarrhea Genitourinary: denies: urgency, dysuria, discharge Musculoskeletal: denies: back pain, joint swelling, arthralgia Skin: denies: rash, lesions Neurological: denies: headache, weakness, paresthesias Psychiatric: denies: anxiety, depression Hematological/Lymphatic: denies: easy bleeding, easy bruising ED Past Medical Hx - Past Medical History Additional medical history: herpes simplex virus - Surgical History Additional Surgical History: denies - Social History Smoking Status: Unknown if ever smoked - Medications Home Medications: Home Medications Medication Instructions Recorded Confirmed Last Taken Type HYDROcodone/APAP 5-325 [[place] 1 each PO Q6HR PRN #20 tablet 03/14/17 Unknown Rx 5/325] Ibuprofen [Motrin 400 MG tab] 400 mg PO Q6HR PRN #30 tablet 03/14/17 Unknown Rx Sulfamethoxazole/Trimethoprim 1 each PO BID #14 tablet 03/14/17 Unknown Rx [Bactrim DS TAB] Ondansetron [Zofran Odt] 4 mg PO Q8HR #9 tab.rapdis 02/19/18 Unknown Rx Dicyclomine [Bentyl] 20 mg PO Q8H 3 Days #9 bottle 02/21/18 Unknown Rx cephALEXin [Keflex] 500 mg PO Q8HR 7 Days #21 cap 02/21/18 Unknown Rx traMADoL [Ultram 50 MG tab] 50 mg PO Q6HR PRN #12 tablet 02/21/18 Unknown Rx Sulfamethoxazole/Trimethoprim 1 each PO BID #14 tablet 05/03/19 Unknown Rx [Bactrim DS TAB] traMADoL [Ultram 50 MG tab] 50 mg PO Q6HR PRN #12 tablet 05/03/19 Unknown Rx ED Physical Exam - General Limitations: No Limitations General appearance: alert, in no apparent distress - Head Head exam: Present: atraumatic, normocephalic - External exam: Present: other (auto dismantler Peesia RN present during exam. / iodoform packing so left labia. No swelling. No pus or drainage. Well- healing. No surrounding cellulitis.). Absent: erythema, swelling, lesions, lacerations, ecchymosis, bleeding - Extremities Exam Extremities exam: Present: full ROM - Back Exam Back exam: Present: full ROM - Neurological Exam Neurological exam: Present: alert, oriented X3, normal gait - Psychiatric Psychiatric exam: Present: normal affect, normal mood - Skin Skin exam: Present: warm, dry, intact, normal color. Absent: rash ED Course Vital Signs 05/07/19 16:02 Temperature 98.6 F Pulse Rate 81 Respiratory 20 Rate Blood Pressure 127/66 [Right] O2 Sat by Pulse 100 Oximetry - Reevaluation(s) Reevaluation #1: 05/07/19 17:31 Patient is speaking in full sentences with no signs of distress noted. ED Recheck MDM - Medical Decision Making This is a 24-year-old female that presents with abscess packing removal. She is stable and was examined by me. 1/ packing removed and patient tolerated well. No signs of wound dehiscence, drainage, or cellulitis. Patient was referred to Follow-up with a primary care doctor in 3-5 days or if symptoms worsen and continue return to emergency room as soon as possible. At time of discharge, the patient does not seem toxic or ill in appearance. No acute signs of distress noted. Patient agrees to discharge treatment plan of care. No further questions noted by the patient. Critical care attestation.: If time is entered above; I have spent that time in minutes in the direct care of this critically ill patient, excluding procedure time. ED Disposition Clinical Impression: Encounter for abscess packing removal, Wound check, abscess Disposition: DC-01 TO HOME OR SELFCARE Is pt being admited?: No Does the pt Need Aspirin: No Condition: Stable Instructions: Acute Wound Care (ED) Additional Instructions: Follow-up with a primary care doctor in 3-5 days or if symptoms worsen and continue return to emergency room as soon as possible. Continue taking antibiotics that was prescribed to you during your previous visit. Referrals: PRIMARY CAREMD [Referring] - 3-5 Days DANIEL ENCISO MD [Staff Physician] - 3-5 Days [facility] [place] - 3-5 Days [facility] [Outside] - 3-5 Days Forms: Work/School Release Form(ED)
== END 2019-05-07 18:08 | disposition home or self-care (01) ==
LOC: ED 15:06
DX: Z48.01 Encounter for change or removal of surgical wound dressing (principal); Z88.6 Allergy status to analgesic agent